=== PATIENT | male | born 1995 | race Caucasian/White ===

== ENCOUNTER 2017-02-25 10:26 | Emergency (ER) | payer MEDICAID ==
[~2017-02-25] VITALS: Ht 160 cm; Wt 59.6 kg
[2017-02-25 10:40] VITALS: BP 149/83
--- NOTE | 2017-02-25 13:56 | NUR ---
PT BIB SELF C/O RT KNEE PAIN X SATURDAY; PT STATES UNSURE IF INJURED KNEE. DENIES ANY MEDICAL HX;AAOX4;NO ACUTE DISTRESS NOTED AT THIS TIME;RT KNEE SLIGHTLY SWOLLEN;HOB ELEVATED;NEEDS ATTENDED;SAFETY MEASURES DONE;MD AT [facility]
[2017-02-25 14:16] VITALS: BP 149/83
== END 2017-02-25 14:15 | disposition home or self-care (01) ==
LOC: MED 10:26
DX: M25.561 Pain in right knee (principal); R03.0 Elevated blood-pressure reading, without diagnosis of hypertension

== ENCOUNTER 2017-05-03 08:22 | Emergency (ER) | payer MEDICAID ==
[~2017-05-03] VITALS: Ht 162.6 cm; Wt 61.2 kg
[2017-05-03 08:28] VITALS: BP 127/66
--- NOTE | 2017-05-03 08:33 | NUR ---
PATIENT PRESENTS TO ED WITH LT ANKLE PAIN. PT STATES HE FRACTURED HIS ANKLE 3 YEARS AGO AND LATELY HE FEELS PAIN ON THAT SIDE;PAIN IS INTERMITTENT;LT FOOT IS SWOLLEN.NO HEMatoma noted; DENIES N/V/D; SKIN IS PINK/WARM/DRY; AAOX4 WITH EVEN AND STEADY GAIT; LUNGS CLEAR BL; HR EVEN AND REGULAR; PT DENIES ANY FEVER, CP, SOB, OR COUGH AT THIS TIME; PATIENT STATES PAIN OF 2/10 AT THIS TIME;PATIENT POSITIONED FOR COMFORT; HOB ELEVATED; BEDRAILS UP X2; BED DOWN.
--- NOTE | 2017-05-03 08:38 | NUR ---
went to xray accompanied by tech.
--- NOTE | 2017-05-03 08:49 | NUR ---
back from xray
--- NOTE | 2017-05-03 08:52 | NUR ---
er at bedside
--- NOTE | 2017-05-03 09:03 | NUR ---
Patient discharged with v/s stable. Written and verbal after care instructions given and explained. Patient verbalized understanding. Ambulatory with steady gait. All questions addressed prior to discharge. Advised to follow up with PMD.
[2017-05-03 09:04] VITALS: BP 125/55
== END 2017-05-03 09:03 | disposition home or self-care (01) ==
LOC: MED 08:22
DX: M21.962 Unspecified acquired deformity of left lower leg (principal); M19.072 Primary osteoarthritis, left ankle and foot
CPT/HCPCS: 73590; 99284

== ENCOUNTER 2017-07-17 08:40 | Emergency (ER) | payer MEDICAID ==
[~2017-07-17] VITALS: Ht 162.6 cm; Wt 59.0 kg
[2017-07-17 08:51] VITALS: BP 128/63
--- NOTE | 2017-07-17 08:55 | NUR ---
PT TO OVERFLOW.
--- NOTE | 2017-07-17 09:00 | NUR ---
PATIENT PRESENTS TO ED WITH C/O LEFT SHOULDER PAIN THAT RADIATES DOWN LEFT ARM . PT DENIES ANY FALL OR TRAUMA . DENIES N/V/D; SKIN IS PINK/WARM/DRY; AAOX4 WITH EVEN AND STEADY GAIT; LUNGS CLEAR BL; HR EVEN AND REGULAR; PT DENIES ANY FEVER, CP, SOB, OR COUGH AT THIS TIME; PATIENT STATES PAIN OF 6/10 AT THIS TIME; VSS; PATIENT POSITIONED IN OVERFLOW. ER MD MADE AWARE OF PT STATUS.
[2017-07-17 10:21] VITALS: BP 128/63
== END 2017-07-17 10:22 | disposition home or self-care (01) ==
LOC: MED 08:40
DX: M54.2 Cervicalgia (principal); R20.8 Other disturbances of skin sensation
CPT/HCPCS: 72125; 99284

== ENCOUNTER 2018-05-01 08:00 | Emergency (ER) | payer MEDICAID ==
[~2018-05-01] VITALS: Ht 162.6 cm; Wt 59.0 kg
[2018-05-01 08:03] VITALS: BP 132/72
[2018-05-01] MEDS ORDERED: IBUPROFEN 600 MG TAB PO ONE (08:35)
[2018-05-01 09:33] VITALS: BP 131/70
== END 2018-05-01 09:33 | disposition home or self-care (01) ==
LOC: MED 08:00
DX: M25.572 Pain in left ankle and joints of left foot (principal)
CPT/HCPCS: 73610; 99284; Q0092

== ENCOUNTER 2018-08-13 08:18 | Emergency (ER) | payer MEDICAID ==
[~2018-08-13] VITALS: Ht 165.1 cm; Wt 61.2 kg
[2018-08-13 08:29] VITALS: BP 120/70
--- NOTE | 2018-08-13 08:44 | NUR ---
PATIENT PRESENTS TO ED WITH C/O LEFT ANKLE PAIN & SLIGHTLY SWELLING X 4 DAYS. + PEDAL PULSE OF LEFT FOOT . PT REPORTED LEFT ANKLE BROKEN X 8 YEARS AGO. PATIENT STATES PAIN OF 7/10 AT THIS TIME; VSS; PATIENT POSITIONED FOR COMFORT; HOB ELEVATED; BEDRAILS UP X2; BED DOWN. ER MD MADE AWARE OF PT STATUS.
[2018-08-13] MEDS ORDERED: KETOROLAC 30 MG/ML VIAL IM ONE (09:00)
[2018-08-13 09:40] VITALS: BP 120/70
--- NOTE | 2018-08-13 09:40 | NUR ---
Patient discharged with v/s stable. Written and verbal after care instructions given and explained. Patient alert, oriented and verbalized understanding of instructions. Ambulatory with steady gait. All questions addressed prior to discharge. ID band removed. Patient advised to follow up with PMD. Rx of NAPROSYN 500MG given. Patient educated on indication of medication including possible reaction and side effects. Opportunity to ask questions provided and answered.
== END 2018-08-13 09:40 | disposition home or self-care (01) ==
LOC: MED 08:18
DX: S93.402A Sprain of unspecified ligament of left ankle, initial encounter (principal); X58.XXXA Exposure to other specified factors, initial encounter; Y93.89 Activity, other specified; Y92.89 Other specified places as the place of occurrence of the external cause; Y99.8 Other external cause status
CPT/HCPCS: 73610; 96372; 99284; J1885; Q0092

== ENCOUNTER 2019-02-12 08:11 | Emergency (ER) | payer MEDICAID ==
[~2019-02-12] VITALS: Ht 162.6 cm; Wt 56.7 kg
[2019-02-12 08:30] VITALS: BP 99/60
--- NOTE | 2019-02-12 08:37 | NUR ---
pt first found on er # 03 hob @ 45 degrees sr up,here for n/v/body aches since saturday a day after eating bbq.vas 1---12/28 now for body aches.awaits er md evaluations/assessments.eric coffey.
--- NOTE | 2019-02-12 08:45 | NUR ---
alanna garcia at bedside for evaluations/assessments.eric coffey.awaits reevaluations.
--- NOTE | 2019-02-12 09:16 | NUR ---
resting er # 03 hob @ 45 degrees sr up,eric coffey.awaits test results,reevaluations.
[2019-02-12] MEDS ORDERED: ONDANSETRON 4 MG ODT PO ONE (09:35)
[2019-02-12 09:56] VITALS: BP 101/65
--- NOTE | 2019-02-12 09:57 | NUR ---
Patient discharged with v/s stable. Written and verbal after care instructions given and explained. Patient alert, oriented and verbalized understanding of instructions. Ambulatory with steady gait. All questions addressed prior to discharge. ID band removed. Patient advised to follow up with PMD. Rx of IBU,ZOFRAN given. Patient educated on indication of medication including possible reaction and side effects. Opportunity to ask questions provided and answered.
== END 2019-02-12 09:57 | disposition home or self-care (01) ==
LOC: MED 08:11
DX: J10.1 Influenza due to other identified influenza virus with other respiratory manifestations (principal)
CPT/HCPCS: 87804; 99283; Q0162